=== PATIENT | female | born 1960 | race Caucasian/White ===

== ENCOUNTER 2018-07-23 13:16 | Emergency (ER) | payer OTHER ==
[2018-07-23 14:36] LABS: Absolute Lymphocytes (CBC) 2.1 K/uL (0.7-4.9); Absolute Monocytes 0.5 K/uL (0.1-1.3); Basophils % 1.1 % (0-1.3); Hematocrit 39.4 % (36.0-45.0); Lymphocytes % 36.1 % (15.3-44.8); MPV 9.3 fL (7.6-11.3); Monocytes % 8.5 % (3.3-12.3); RBC Red Blood Cell Count 4.27 M/uL (3.86-4.86)
[2018-07-23] MEDS ORDERED: DIAZEPAM 10 MG/2 ML INJ SYRINGE ONE (14:38)
[2018-07-23] MEDS ORDERED: KETOROLAC 30 MG/ML INJ ONE (14:40)
[2018-07-23] MEDS ORDERED: ASPIRIN 81 MG CHEWABLE TABLET ONE (14:40)
[2018-07-23 14:54] LABS: ALT/SGPT 24 U/L (12-78); AST/SGOT 16 U/L (15-37); Albumin 3.8 g/dL (3.4-5.0); Alkaline Phosphatase 62 U/L (45-117); BUN Blood Urea Nitrogen 12 mg/dL (7-18); Bicarbonate 27 mmol/L (21-32); Bilirubin Direct 0.1 mg/dL (0-0.2); Bilirubin Total 0.4 mg/dL (0.2-1.0); Glucose Level 94 mg/dL (74-106); NT PRO-BNP 70 pg/mL (<125); Potassium 3.9 mmol/L (3.5-5.1); Protein, Total 6.6 g/dL (6.4-8.2); Sodium Level 140 mmol/L (136-145); Troponin (Emerg Dept Use Only) < 0.02 ng/mL (0.0-0.045)
[2018-07-23] MEDS ORDERED: HYDROCODONE/APAP 7.5/325 MG TAB ONE (15:33)
--- NOTE | 2018-07-23 15:52 | EDPHYS ---
Physician Documentation [facility] Name: Gogo Linn Age: 58 yrs Sex: Female : 1960 Arrival Date: 07/23/2018 Time: 13:20 Bed 15 Private MD: Joss Soriano E ED Physician Dennis Escoto HPI: 07/23 14:05 This 58 yrs old Female presents to ER via Ambulatory with complaints of Chest cp Pain, Arm Pain. 14:05 The patient presents with pain that is acute, with no known mechanism of injury. cp 14:05 The symptoms are located in the left trapezius, left scapular area and left subscapular cp area. Onset: The symptoms/episode began/occurred 2 day(s) ago. The pain radiates to the anterior aspect of left upper chest and left arm. Associated signs and symptoms: Pertinent positives: tingling, Pertinent negatives: abdominal pain, fever, numbness, weakness. The problem was sustained from unknown cause. Modifying factors: the patient symptoms are aggravated by movement. Severity of symptoms: in the emergency department the symptoms are unchanged, despite home interventions. Historical: - Allergies: 13:31 Compazine; aj 13:31 Codeine; aj - Home Meds: 13:31 Lisinopril Oral [Active]; Cymbalta oral oral [Active]; aspirin 81 mg Oral chew 1 tab aj once daily [Active]; gabapentin oral oral [Active]; Symbicort inhalation inhalation [Active]; - PMHx: 13:31 COPD; Hypertension; Depression; Back pain; aj - PSHx: 13:31 Back surgery; Back Stimulator; Toe Amputation; Jaw; Cholecystectomy; aj - Immunization history:: Adult Immunizations up to date. - Social history:: Smoking status: Patient/guardian denies using tobacco. - Ebola Screening: : Patient negative for fever greater than or equal to 101.5 degrees Fahrenheit, and additional compatible Ebola Virus Disease symptoms Patient denies exposure to infectious person Patient denies travel to an Ebola-affected area in the 21 days before illness onset No symptoms or risks identified at this time. ROS: 14:10 Constitutional: Negative for body aches, chills, fatigue, fever, poor PO intake. cp 14:10 Eyes: Negative for injury, pain, redness, and discharge. cp 14:10 ENT: Negative for drainage from ear(s), ear pain, sore throat, difficulty swallowing, difficulty handling secretions. 14:10 Cardiovascular: Positive for chest pain, of the anterior aspect of left upper chest, Negative for edema, palpitations. 14:10 Respiratory: Negative for cough, shortness of breath, wheezing. 14:10 Abdomen/GI: Negative for abdominal pain, nausea, vomiting, and diarrhea, constipation, black/tarry stool, rectal bleeding. 14:10 Back: Positive for pain at rest, pain with movement, of the left trapezius, left scapular area and left subscapular area, Negative for injury or acute deformity, decreased range of motion. 14:10 MS/extremity: Positive for pain, paresthesias, of the left arm, Negative for injury or acute deformity, decreased range of motion. 14:10 Skin: Negative for cellulitis, rash. 14:10 Neuro: Negative for altered mental status, headache, weakness. 14:10 All other systems are negative. Exam: 13:40 ECG was reviewed by the Attending Physician. cp 14:15 Constitutional: The patient appears in no acute distress, alert, awake, cp non-diaphoretic, non-toxic, well developed, well nourished. 14:15 Head/Face: Normocephalic, atraumatic. Eyes: Pupils equal round and reactive to light, cp extra-ocular motions intact. Lids and lashes normal. Conjunctiva and sclera are non-icteric and not injected. Cornea within normal limits. Periorbital areas with no swelling, redness, or edema. ENT: Nares patent. No nasal discharge, no septal abnormalities noted. Tympanic membranes are normal and external auditory canals are clear. Oropharynx with no redness, swelling, or masses, exudates, or evidence of obstruction, uvula midline. Mucous membranes moist. Neck: Trachea midline, no thyromegaly or masses palpated, and no cervical lymphadenopathy. Supple, full range of motion without nuchal rigidity, or vertebral point tenderness. No Meningismus. 14:15 Chest/axilla: Inspection: normal, Palpation: crepitus, is not appreciated, tenderness, that is mild, of the anterior aspect of left upper chest, that partially reproduces the patient's complaints. 14:15 Cardiovascular: Rate: normal, Rhythm: regular, Pulses: Pulses are 2+ in right radial artery and left radial artery. Heart sounds: murmur, not appreciated, rub, not appreciated, gallop, not appreciated, Edema: is not appreciated, JVD: is not appreciated. 14:15 Respiratory: the patient does not display signs of respiratory distress, Respirations: normal, no use of accessory muscles, no retractions, no splinting, no tachypnea, labored breathing, is not present, Breath sounds: are clear throughout, no decreased breath sounds, no stridor, no wheezing. 14:15 Abdomen/GI: Inspection: abdomen appears normal, Bowel sounds: active, all quadrants, Palpation: abdomen is soft and non-tender, in all quadrants, rebound tenderness, is not appreciated, voluntary guarding, is not appreciated, involuntary guarding, is not appreciated. 14:15 Back: pain, that is mild, of the left trapezius, left scapular area and left subscapular area, ROM is normal, vertebral tenderness, is not appreciated. 14:15 Musculoskeletal/extremity: the left arm Tingling of extremity. 14:15 Skin: cellulitis, is not appreciated, no rash present. 14:15 Neuro: Orientation: to person, place \T\ time. Mentation: is normal, Cerebellar function: is grossly normal, Motor: moves all fours, strength is normal. Vital Signs: 13:31 BP 134 / 75; Pulse 88; Resp 20; Temp 98.0; Pulse Ox 96% on R/A; Weight 73.48 kg; Height aj 5 ft. 2 in. (157.48 cm); 14:21 BP 124 / 75; Pulse 73; Resp 16; Pulse Ox 99% on R/A; Pain 6/10; ch 15:36 BP 129 / 102; Pulse 78; Resp 13; Pulse Ox 97% on R/A; Pain 9/10; ch 13:31 Body Mass Index 29.63 (73.48 kg, 157.48 cm) aj MDM: 13:41 Patient medically screened. cp 14:15 Differential diagnosis: ruptured disc, muscle spasm, muscle strain, cardiac arrythmia, cp angina, acute MD. 15:50 Data reviewed: vital signs, nurses notes, lab test result(s), EKG, radiologic studies, cp plain films. 15:50 Test interpretation: by ED physician or midlevel provider: ECG, plain radiologic cp studies. Counseling: I had a detailed discussion with the patient and/or guardian regarding: the historical points, exam findings, and any diagnostic results supporting the discharge/admit diagnosis, lab results, radiology results, the need for outpatient follow up, a family practitioner, to return to the emergency department if symptoms worsen or persist or if there are any questions or concerns that arise at home. Response to treatment: the patient's symptoms have mildly improved after treatment, and as a result, I will discharge patient. Special discussion: Based on the patient's history, exam, and Dx evaluation, there is no indication for emergent intervention or inpatient Tx. It is understood by the patient/guardian that if the Sx's persist or worsen they need to return immediately for re-evaluation. 07/23 13:59 Order name: Basic Metabolic Panel 07/23 13:59 Order name: CBC with Diff 07/23 13:59 Order name: LFT's cp 07/23 13:59 Order name: Magnesium 07/23 13:59 Order name: NT PRO-BNP 07/23 13:59 Order name: PT-INR 07/23 14:37 Order name: Protime (+INR); Complete Time: 15:32 EDMS 07/23 14:38 Order name: CBC with Automated Diff; Complete Time: 15:32 EDMS 07/23 15:32 Interpretation: Reviewed. 07/23 14:55 Order name: Basic Metabolic Panel; Complete Time: 15:32 EDMS 07/23 15:32 Interpretation: Normal except: GFR 52. 07/23 14:55 Order name: Liver (Hepatic) Function; Complete Time: 15:32 EDMS 07/23 14:55 Order name: Troponin (Emerg Dept Use Only); Complete Time: 15:32 EDMS 07/23 15:32 Interpretation: TROPED < 0.02; Reviewed. cp 07/23 14:55 Order name: NT PRO-BNP; Complete Time: 15:32 EDMS 07/23 14:55 Order name: Magnesium; Complete Time: 15:32 EDMS 07/23 13:59 Order name: XRAY Chest (1 view) cp 07/23 13:59 Order name: EKG; Complete Time: 14:02 cp 07/23 13:59 Order name: Cardiac monitoring; Complete Time: 14:37 cp 07/23 13:59 Order name: EKG - Nurse/Tech; Complete Time: 14:37 cp 07/23 13:59 Order name: IV Saline Lock; Complete Time: 14:37 cp 07/23 13:59 Order name: Labs collected and sent; Complete Time: 14:37 cp 07/23 13:59 Order name: O2 Per Protocol; Complete Time: 14:37 cp 07/23 13:59 Order name: O2 Sat Monitoring; Complete Time: 14:37 cp EC:40 Rate is 77 beats/min. Rhythm is regular. ME interval is normal. QRS interval is normal. cp QT interval is normal. Interpreted by me. Reviewed by me. Administered Medications: 14:28 Drug: Aspirin Chewable Tablet 324 mg Route: PO; ch 15:37 Follow up: Response: No adverse reaction; No change in condition ch 14:30 Drug: TORadol 30 mg Route: IVP; Site: right antecubital; ch 15:36 Follow up: Response: No adverse reaction; No change in condition ch 14:32 Drug: Diazepam 2 mg Route: IVP; Site: right antecubital; ch 15:37 Follow up: Response: No adverse reaction; No change in condition ch 15:38 Drug: [place] (7.5 mg-325 mg) 1 tabs Route: PO; ch 15:50 Follow up: Response: No adverse reaction; Marked relief of symptoms ch Disposition: 07/23/18 15:51 Discharged to Home. Impression: Strain of muscle and tendon of back wall of thorax, Other chest pain. - Condition is Stable. - Discharge Instructions: Nonspecific Chest Pain, Musculoskeletal Pain, Aspirin and Your Heart. - Prescriptions for Naprosyn 500 mg Oral Tablet - take 1 tablet by ORAL route 2 times per day take with food; 20 tablet. Cyclobenzaprine 10 mg Oral Tablet - take 1 tablet by ORAL route every 8 hours As needed no driving while taking medication; 20 tablet. Tramadol 50 mg Oral Tablet - take 1 tablet by ORAL route every 8 hours as needed. no driving while taking medication; 15 tablet. - Medication Reconciliation Form, Thank You Letter, Antibiotic Education, Prescription Opioid Use form. - Follow up: Private Physician; When: 2 - 3 days; Reason: Recheck today's complaints. - Problem is new. - Symptoms have improved. Addendum: 07/25/2018 03:36 Co-signature as Attending Physician, Dennis Escoto MD I agree with the assessment and t w4 plan of care. Signatures: Dispatcher [employer] EDMD Francine Gastelum RN RN ch Myers, Amanda, RN RN aj Page, Corey, PA PA cp Wadley, Terrence, MD MD tw4 Corrections: (The following items were deleted from the chart) 07/23 14:37 14:01 TROPONIN (EMERG DEPT USE ONLY)+C.LAB.BRZ ordered. [facility] EDMD 16:19 15:51 07/23/2018 15:51 Discharged to Home. Impression: Strain of muscle and tendon of ch back wall of thorax; Other chest pain. Condition is Stable. Forms are Medication Reconciliation Form, Thank You Letter, Antibiotic Education, Prescription Opioid Use. Follow up: Private Physician; When: 2 - 3 days; Reason: Recheck today's complaints. Problem is new. Symptoms have improved. cp
--- NOTE | 2018-07-23 15:52 | ER ---
Nurse's Notes [facility] Name: Gogo Linn Age: 58 yrs Sex: Female : 1960 Arrival Date: 07/23/2018 Time: 13:20 Bed 15 Private MD: Joss Soriano E Diagnosis: Strain of muscle and tendon of back wall of thorax;Other chest pain Presentation: 07/23 13:26 Presenting complaint: Patient states: Upper back pain that started last night and moved aj to chest and left arm this AM. Transition of care: patient was not received from another setting of care. Onset of symptoms was July 22, 2018. Risk Assessment: Do you want to hurt yourself or someone else? Patient reports no desire to harm self or others. Initial Sepsis Screen: Does the patient meet any 2 criteria? No. Patient's initial sepsis screen is negative. Does the patient have a suspected source of infection? No. Patient's initial sepsis screen is negative. Care prior to arrival: None. 13:26 Method Of Arrival: Ambulatory aj 13:26 Acuity: LOGAN 3 aj Triage Assessment: 13:31 General: Appears in no apparent distress. comfortable, Behavior is calm, cooperative, aj appropriate for age. Pain: Complains of pain in back and chest. Neuro: Level of Consciousness is awake, alert, obeys commands, Oriented to person, place, time, situation, Appropriate for age. Cardiovascular: Reports chest pain, Capillary refill < 3 seconds in bilateral fingers. Respiratory: Airway is patent Respiratory effort is even, unlabored, Respiratory pattern is regular, symmetrical. Derm: Skin is intact, is healthy with good turgor, Skin is pink, warm \T\ dry. normal. Historical: - Allergies: 13:31 Compazine; aj 13:31 Codeine; aj - Home Meds: 13:31 Lisinopril Oral [Active]; Cymbalta oral oral [Active]; aspirin 81 mg Oral chew 1 tab aj once daily [Active]; gabapentin oral oral [Active]; Symbicort inhalation inhalation [Active]; - PMHx: 13:31 COPD; Hypertension; Depression; Back pain; aj - PSHx: 13:31 Back surgery; Back Stimulator; Toe Amputation; Jaw; Cholecystectomy; aj - Immunization history:: Adult Immunizations up to date. - Social history:: Smoking status: Patient/guardian denies using tobacco. - Ebola Screening: : Patient negative for fever greater than or equal to 101.5 degrees Fahrenheit, and additional compatible Ebola Virus Disease symptoms Patient denies exposure to infectious person Patient denies travel to an Ebola-affected area in the 21 days before illness onset No symptoms or risks identified at this time. Screenin:21 Abuse screen: Denies threats or abuse. Denies injuries from another. Nutritional ch screening: No deficits noted. Tuberculosis screening: No symptoms or risk factors identified. Fall Risk None identified. Assessment: 14:21 General: Appears in no apparent distress. comfortable, Behavior is calm, cooperative, ch appropriate for age. Pain: Complains of pain in left clavicle, anterior aspect of left upper chest and left breast Pain radiates to left arm Pain currently is 6 out of 10 on a pain scale. Pain began suddenly. Neuro: No deficits noted. Cardiovascular: Reports chest pain, Heart tones S1 S2 present Capillary refill < 3 seconds in bilateral fingers toes Clubbing of nail beds is absent Patient's skin is warm and dry. Pulses are all present. Edema is absent. Rhythm is regular. Respiratory: Airway is patent Respiratory effort is even, unlabored, Breath sounds are clear bilaterally. GI: No signs and/or symptoms were reported involving the gastrointestinal system. : No signs and/or symptoms were reported regarding the genitourinary system. Derm: Skin is pink, warm \T\ dry. 15:20 Reassessment: Patient appears in no apparent distress at this time. No changes from previously documented assessment. Patient and/or family updated on plan of care and expected duration. Pain level reassessed. Patient is alert, oriented x 3, equal unlabored respirations, skin warm/dry/pink. 15:20 Reassessment: pt states her pain is not improved at all after the medications. Page notified, pt medicated per orders. General: Appears in no apparent distress. comfortable, Behavior is calm, cooperative, appropriate for age. General: Appears in no apparent distress. comfortable, Behavior is calm, cooperative, appropriate for age. Vital Signs: 13:31 BP 134 / 75; Pulse 88; Resp 20; Temp 98.0; Pulse Ox 96% on R/A; Weight 73.48 kg; Height aj 5 ft. 2 in. (157.48 cm); 14:21 BP 124 / 75; Pulse 73; Resp 16; Pulse Ox 99% on R/A; Pain 6/10; ch 15:36 BP 129 / 102; Pulse 78; Resp 13; Pulse Ox 97% on R/A; Pain 9/10; ch 13:31 Body Mass Index 29.63 (73.48 kg, 157.48 cm) aj ED Course: 13:20 Patient arrived in ED. mr 13:20 Joss Soriano MD is Private Physician. mr 13:27 Triage completed. aj 13:31 Arm band placed on left wrist. Patient placed in waiting room. EKG completed in triage. aj Results shown to MD. 13:41 Darryl Irwin PA is PHCP. cp 13:41 Dennis Escoto MD is Attending Physician. cp 14:20 Initial lab(s) drawn, by me, sent to lab. EKG done, by ED staff, reviewed by Dennis Escoto MD. Inserted saline lock: 20 gauge in right Blood collected. 14:21 Francine Gastelum, RN is Primary Nurse. ch 14:21 Patient has correct armband on for positive identification. Placed in gown. Bed in low ch position. Call light in reach. Side rails up X2. Pulse ox on. NIBP on. 14:21 No provider procedures requiring assistance completed. Patient maintains SpO2 ch saturation greater than 95% on room air. Thermoregulation: warm blanket given to patient. 14:36 Pillow given. jp3 14:36 Basic Metabolic Panel Sent. jp3 14:36 CBC with Diff Sent. jp3 14:36 LFT's Sent. jp3 14:36 Magnesium Sent. jp3 14:36 NT PRO-BNP Sent. jp3 14:36 PT-INR Sent. jp3 15:40 IV discontinued, intact, bleeding controlled, No redness/swelling at site. Pressure ch dressing applied. Administered Medications: 14:28 Drug: Aspirin Chewable Tablet 324 mg Route: PO; ch 15:37 Follow up: Response: No adverse reaction; No change in condition ch 14:30 Drug: TORadol 30 mg Route: IVP; Site: right antecubital; ch 15:36 Follow up: Response: No adverse reaction; No change in condition ch 14:32 Drug: Diazepam 2 mg Route: IVP; Site: right antecubital; ch 15:37 Follow up: Response: No adverse reaction; No change in condition ch 15:38 Drug: [place] (7.5 mg-325 mg) 1 tabs Route: PO; 15:50 Follow up: Response: No adverse reaction; Marked relief of symptoms Outcome: 15:51 Discharge ordered by MD. cp 16:15 Discharged to home ambulatory, with family. 16:15 Condition: stable 16:15 Discharge instructions given to patient, family, Instructed on discharge instructions, follow up and referral plans. no driving heavy equipment, Demonstrated understanding of instructions, follow-up care, medications, Prescriptions given X 3. 16:19 Patient left the ED. Signatures: Francine Gastelum RN RN Keisha Romero RN RN aj Rivera, Mary mr Page, Corey, PA PA cp Pisarski, Jacob jp3
--- NOTE | 2018-07-23 16:29 | RAD REPORT ---
EXAM DESCRIPTION: RAD - Chest Single View - 07/23/2018 3:11 pm CLINICAL HISTORY: Back pain, chest pain on the left COMPARISON: None. TECHNIQUE: AP portable chest image was obtained 1456 hours . FINDINGS: No focal lung parenchymal process. No failure or volume overload. Heart and vasculature ar e normal. No measurable pleural effusion and no pneumothorax. No acute bony abnormality seen. No acut e aortic finding. Multiple monitoring devices overlie the chest. IMPRESSION: No acute cardiopulmonary process.
--- NOTE | 2018-07-24 11:47 | EKG ---
Test Date: 2018-07-23 Test Time: 13:32:07 Senior Software Manager: EZEQUIEL MEASUREMENT RESULTS: Intervals: Rate: 77 [place]: 126 QRSD: 74 QT: 362 QTc: 409 [place]: P: 55 WA: 126 QRS: 30 T: 28 INTERPRETIVE STATEMENTS: Normal sinus rhythm Low voltage QRS Septal infarct, age undetermined Abnormal ECG No previous ECG available for comparison Electronically Signed On 07-24-18 11:43:10 TSO by Basim Khan
== END 2018-07-23 16:19 | disposition home or self-care (01) ==
LOC: ER 13:16
DX: S29.012A Strain of muscle and tendon of back wall of thorax, initial encounter (principal); I10 Essential (primary) hypertension; F32.9 Major depressive disorder, single episode, unspecified; J44.9 Chronic obstructive pulmonary disease, unspecified; Z79.82 Long term (current) use of aspirin; Z88.1 Allergy status to other antibiotic agents; Z88.5 Allergy status to narcotic agent
CPT/HCPCS: 36415; 71045; 80048; 80076; 83735; 83880; 84484; 85025; 85610; 93005; J3360